=== PATIENT | female | born 1975 | race Caucasian/White ===

== ENCOUNTER 2018-03-05 12:28 | Day surgery (SDC) | payer OTHER ==
[2018-03-05 13:12] LABS: HEMATOCRIT 38.1 % (32.4-45.2); HEMOGLOBIN 12.4 GM/dL (10.7-15.3); MCH 25.2 pg (25.7-33.7); MCHC 32.5 g/dl (32.0-36.0); MEAN CELL VOLUME 77.5 fl (80-96); MEAN PLT VOLUME 7.9 fl (7.5-11.1); PLATELET COUNT 387 K/MM3 (134-434); RBC 4.92 M/mm3 (3.60-5.2); RDW 14.7 % (11.6-15.6); WHITE BLOOD COUNT 7.7 K/mm3 (4.0-10.0)
[2018-03-05 13:37] VITALS: BMI 30.5
--- NOTE | 2018-03-05 13:49 | HP ---
Admitting History and Physical - Admission Chief Complaint: Prolonged menses History of Present Illness: 43 yo Para 2 with h/o prolonged and heavy menses, is pre op for endometrial ablation. History Source: Patient Limitations to Obtaining History: No Limitations - Past Medical History ...LMP: 01/23/18 ...: No ...Para: 2 - Past Surgical History Past Surgical History: Yes: None - Smoking History Smoking history: Former smoker Have you smoked in the past 12 months: No If you are a former smoker, when did you quit?: 23 years ago - Alcohol/Substance Use Hx Alcohol Use: Yes (social) - Social History History of Recent Travel: No Home Medications - Allergies Allergies/Adverse Reactions: Allergies Allergy/AdvReac Type Severity Reaction Status Date / Time No Known Allergies Allergy Verified 03/05/18 13:09 - Home Medications Home Medications: Ambulatory Orders Norgestimate-Ethinyl Estradiol [Norg-Ee 0.18-0.215-0.25/0.025] 1 each PO DAILY 02/27/18 Family Disease History - Family Disease History Family History: Unremarkable Review of Systems - Review of Systems Constitutional: reports: No Symptoms Eyes: reports: No Symptoms HENT: reports: No Symptoms Neck: reports: No Symptoms Cardiovascular: reports: No Symptoms Respiratory: reports: No Symptoms Gastrointestinal: reports: No Symptoms Genitourinary: reports: Vaginal Bleeding Breasts: reports: No Symptoms Reported Musculoskeletal: reports: No Symptoms Integumentary: reports: No Symptoms Neurological: reports: No Symptoms Endocrine: reports: No Symptoms Hematology/Lymphatic: reports: No Symptoms Psychiatric: reports: No Symptoms Pain Intensity: 0 Physical Examination Vital Signs: Vital Signs Temperature 98.8 F 03/05/18 13:25 Pulse Rate 69 03/05/18 13:25 Respiratory Rate 18 03/05/18 13:25 Blood Pressure 123/84 03/05/18 13:25 O2 Sat by Pulse Oximetry (%) 100 03/05/18 13:27 Constitutional: Yes: Well Nourished Eyes: Yes: Conjunctiva Clear HENT: Yes: Atraumatic Neck: Yes: Supple Cardiovascular: Yes: Regular Rate and Rhythm Respiratory: Yes: Regular Gastrointestinal: Yes: Normal Bowel Sounds Musculoskeletal: Yes: WNL Extremities: Yes: WNL Neurological: Yes: Alert, Oriented ...Motor Strength: WNL Psychiatric: Yes: Alert, Oriented Labs: CBC, BMP 03/05/18 12:58 Problem List - Problems (1) Menorrhagia Code(s): N92.0 - EXCESSIVE AND FREQUENT MENSTRUATION WITH REGULAR CYCLE Qualifiers: Menorrahagia type: with regular cycle Qualified Code(s): N92.0 - Excessive and frequent menstruation with regular cycle Assessment/Plan Menorrhagia Pre op for endometrial ablation Consent signed Anesthesia to see patient
[2018-03-05] MEDS ORDERED: LIDOCAINE HCL/PF 2% SDV 5ML VIAL ONE (13:58)
[2018-03-05] MEDS ORDERED: PROPOFOL 20 ML ONE ×2 (13:59→14:00)
[2018-03-05] MEDS ORDERED: MIDAZOLAM HCL 2 MG/2 ML SINGLE DOSE VIAL ONE (13:59)
[2018-03-05] MEDS ORDERED: KETOROLAC TROMETHAMINE 30 MG/1 ML VIAL ONE (14:23)
[2018-03-05] MEDS ORDERED: DEXAMETHASONE SOD PHOSPHATE 4 MG/1 ML VIAL ONE (14:29)
--- NOTE | 2018-03-05 14:58 | OP ---
Operative Note - Note: Operative Date: 03/05/18 Pre-Operative Diagnosis: Menorrhagia Operation: Hysteroscopic endometrial ablation Post-Operative Diagnosis: Same as Pre-op Surgeon: Nneka Hinson Anesthesia: General Estimated Blood Loss (mls): 0 Operative Report Dictated: Yes
[2018-03-05] MEDS ORDERED: ONDANSETRON 4 MG/2 ML VIAL IVPUSH PRN (15:07)
[2018-03-05] MEDS ORDERED: oxyCODONE HCL 5 MG TABLET PO PRN (15:07)
[2018-03-05] MEDS ORDERED: LACTATED RINGERS SOLUTION 1,000 ML IV SCH (15:15)
--- NOTE | 2018-03-05 15:24 | OP ---
DATE OF OPERATION: 03/05/2018 PREOPERATIVE DIAGNOSIS: Menorrhagia. POSTOPERATIVE DIAGNOSIS: Menorrhagia. PROCEDURE: Hysteroscopic endometrial ablation. SURGEON: Nneka Hinson MD ANESTHESIA: General. COMPLICATIONS: None. ESTIMATED BLOOD LOSS: Less than 5 Ml. DESCRIPTION OF PROCEDURE: Patient was taken to the operating room where general anesthesia was administered. Patient was then placed in lithotomy position. She was then prepped and draped in proper sterile fashion. A weighted speculum was placed in the vagina. The anterior lip of the cervix was grasped with a single-tooth tenaculum. Then, the ablation machine was activated in preparation for D&C. Hysteroscopy was undertaken. Then, using the hysteroscope, the sheath was inserted into the uterine cavity. Hysteroscopy was performed, and the cavity was visualized. Both ostia were visualized. No mass was noted. Once hysteroscopy was performed, the endometrial ablation was initiated until a complete blanching of the cavity. were placed on the vagina in order to obtain a perfect cervical seal. Also, a tenaculum was placed on the posterior lip of the cervix for a proper sealing. Then, upon completion of the ablation, the machine was allowed to cool off. The tenaculums were removed and so was the hysteroscope. There was no bleeding noted. Patient was taken out of lithotomy position. She was taken to PACU in stable condition. NNEKA HINSON M.D. MARIA ISABEL/[id number]
[2018-03-05] MEDS ORDERED: oxyCODONE HCL 5 MG TABLET ONE (16:58)
[2018-03-05 17:53] VITALS: BP 129/82; PULSE 73; TEMP 98.1
== END 2018-03-05 17:50 | disposition home or self-care (01) ==
LOC: JASU-SURG 12:28
PROVIDERS: ATTEND Obstetrics & Gynecology
PROC: 0U5B8ZZ Destruction of Endometrium, Via Natural or Artificial Opening Endoscopic (ICD-10-PCS; principal; 2018-03-05 14:00)
DX: N92.0 Excessive and frequent menstruation with regular cycle (principal)
CPT/HCPCS: 36415; 84703; 85027; 94760

== ENCOUNTER 2022-06-19 09:49 | Day surgery (SDC) | payer OTHER ==
[2022-06-12 14:40] VITALS: BMI 28.8
[2022-06-19] MEDS ORDERED: PROPOFOL 60 ML ONE (10:34)
[2022-06-19 11:32] VITALS: TEMP 97.8
[2022-06-19 12:01] VITALS: BP 110/65; PULSE 61; RESP 18
== END 2022-06-19 12:17 | disposition home or self-care (01) ==
LOC: FASU-ENDO 09:49
PROVIDERS: ATTEND Internal Medicine Gastroenterology
PROC: 0DBL8ZX Excision of Transverse Colon, Via Natural or Artificial Opening Endoscopic, Diagnostic (ICD-10-PCS; principal; 2022-06-19 11:07)
DX: Z12.11 Encounter for screening for malignant neoplasm of colon (principal); K63.89 Other specified diseases of intestine; K64.1 Second degree hemorrhoids; K64.8 Other hemorrhoids; K57.30 Diverticulosis of large intestine without perforation or abscess without bleeding
CPT/HCPCS: 88305-TC

== ENCOUNTER 2022-08-21 11:02 | Day surgery (SDC) | payer OTHER ==
[2022-08-15 11:38] VITALS: BMI 28.5
[2022-08-21 12:49] VITALS: TEMP 98
[2022-08-21 12:54] VITALS: BP 106/72; PULSE 68; RESP 19
== END 2022-08-21 12:40 | disposition home or self-care (01) ==
LOC: FASU-ENDO 11:02
PROVIDERS: ATTEND Internal Medicine Gastroenterology
PROC: 0DB68ZX Excision of Stomach, Via Natural or Artificial Opening Endoscopic, Diagnostic (ICD-10-PCS; 2022-08-21)
PROC: 0DB48ZX Excision of Esophagogastric Junction, Via Natural or Artificial Opening Endoscopic, Diagnostic (ICD-10-PCS; 2022-08-21)
PROC: 0DB98ZX Excision of Duodenum, Via Natural or Artificial Opening Endoscopic, Diagnostic (ICD-10-PCS; principal; 2022-08-21 11:54)
DX: K29.50 Unspecified chronic gastritis without bleeding (principal); K31.9 Disease of stomach and duodenum, unspecified; K20.90 Esophagitis, unspecified without bleeding; R10.13 Epigastric pain
CPT/HCPCS: 88305-TC; 88342-TC

== ENCOUNTER 2022-10-02 09:58 | Day surgery (SDC) | payer OTHER ==
[2022-09-26 14:05] VITALS: BMI 28.5
[2022-10-02 13:08] VITALS: TEMP 97.8
[2022-10-02 13:11] VITALS: BP 110/68; PULSE 68; RESP 20
== END 2022-10-02 13:05 | disposition home or self-care (01) ==
LOC: FASU-ENDO 09:58
PROVIDERS: ATTEND Internal Medicine Gastroenterology
PROC: 0DB68ZX Excision of Stomach, Via Natural or Artificial Opening Endoscopic, Diagnostic (ICD-10-PCS; principal; 2022-10-02 12:38)
DX: Z13.810 Encounter for screening for upper gastrointestinal disorder (principal); K25.9 Gastric ulcer, unspecified as acute or chronic, without hemorrhage or perforation; K29.50 Unspecified chronic gastritis without bleeding; K31.9 Disease of stomach and duodenum, unspecified
CPT/HCPCS: 88305-TC; 88342-TC

== ENCOUNTER 2023-01-01 09:52 | Day surgery (SDC) | payer OTHER ==
[2022-12-16 11:54] VITALS: BMI 28.5
[2023-01-01] MEDS ORDERED: PROPOFOL 80 ML ONE (10:07)
[2023-01-01 10:08] VITALS: RESP 16
[2023-01-01] MEDS ORDERED: MIDAZOLAM HCL 2 MG/2 ML SINGLE DOSE VIAL ONE (11:14)
[2023-01-01 12:35] VITALS: TEMP 97.7
[2023-01-01 12:46] VITALS: BP 121/71; PULSE 58
== END 2023-01-01 12:25 | disposition home or self-care (01) ==
LOC: FASU-ENDO 09:52
PROVIDERS: ATTEND Internal Medicine Gastroenterology
PROC: 0DB68ZX Excision of Stomach, Via Natural or Artificial Opening Endoscopic, Diagnostic (ICD-10-PCS; 2023-01-01)
PROC: 0DB98ZX Excision of Duodenum, Via Natural or Artificial Opening Endoscopic, Diagnostic (ICD-10-PCS; principal; 2023-01-01 11:22)
DX: Z87.11 Personal history of peptic ulcer disease (principal); K29.50 Unspecified chronic gastritis without bleeding; K31.9 Disease of stomach and duodenum, unspecified; K21.00 Gastro-esophageal reflux disease with esophagitis, without bleeding
CPT/HCPCS: 88305-TC; 88342-TC